=== PATIENT | female | born 1975 | race Caucasian/White ===

== ENCOUNTER 2017-03-09 23:13 | Emergency (ER) | payer MEDICAID ==
[2017-03-09 23:13] VITALS: BMI 29.1
[2017-03-09 23:20] VITALS: BP 121/72; RESP 20; TEMP 99.1
[2017-03-09] MEDS ORDERED: Promethazine/Cod 6.25mg-10mg/5ml Syr UD PO STA (23:30)
[2017-03-09] MEDS: Albuterol-Ipratrop 3 mg / 0.5 (3 ml) UD IH SCH ×2 (23:30→23:44)
[2017-03-09] MEDS ORDERED: Promethazine/Cod 6.25mg-10mg/5ml Syr UD ONE (23:35)
[2017-03-09] MEDS ORDERED: Albuterol-Ipratrop 3 mg / 0.5 (3 ml) UD ONE ×2 (23:36)
--- NOTE | 2017-03-10 00:42 | C.PDOC ---
History Of Present Illness 41 year old patient, with a history of bronchitis, presents to the ED complaining of a productive cough and chest congestion for the past 4 days. Patient took DayQuil and NyQuil with no relief. Patient is unable to sleep due to her symptoms. Patient became short of breath just prior to arrival which prompted the visit. Patient denies fever, chills, nausea, or vomiting. Time Seen by Provider: 03/09/17 23:20 Chief Complaint (Nursing): Cough, Cold, Congestion History Per: Patient History/Exam Limitations: no limitations Onset/Duration Of Symptoms: Days (4) Current Symptoms Are (Timing): Still Present Location Of Pain: Other Sick Contacts (Context): None Associated Symptoms: Cough, Other (chest congestion) Ear Symptoms: Bilateral: None Severity: Mild Pain Scale Rating Of: 3 Recent travel outside of the [place]: No Past Medical History Reviewed: Historical Data, Nursing Documentation, Vital Signs Vital Signs: Last Vital Signs Temp 99.1 F 03/09/17 23:17 Pulse 74 03/10/17 00:53 Resp 20 03/10/17 00:53 BP 121/72 03/09/17 23:17 Pulse Ox 97 03/10/17 00:53 - Medical History PMH: Anxiety, Bipolar Disorder, Bronchitis, Depression, Gastritis, Post Traumatic Stress Disorder - [facility] Procedures INJECT/INFUSE NEC (06/16/07) PSYCHIAT DRUG THERAP NEC (12/28/14) Family History: States: Unknown Family Hx - Social History Hx Tobacco Use: Yes Hx Alcohol Use: No Hx Substance Use: No (methadone) - Immunization History Hx Tetanus Toxoid Vaccination: No Hx Influenza Vaccination: No Hx Pneumococcal Vaccination: No Review Of Systems Except As Marked, All Systems Reviewed And Found Negative. Constitutional: Negative for: Fever, Chills Respiratory: Positive for: Cough (productive), Shortness of Breath, Other ( chest congestion) Gastrointestinal: Negative for: Nausea, Vomiting Physical Exam - Physical Exam Appears: Non-toxic, No Acute Distress Skin: Warm, Dry Head: Atraumatic, Normacephalic Eye(s): bilateral: PERRL, EOMI Ear(s): Bilateral: Normal Nose: Normal Oral Mucosa: Moist Throat: Normal, No Erythema, No Exudate Neck: Normal ROM, Supple Cardiovascular: Rhythm Regular Respiratory: Decreased Breath Sounds, No Accessory Muscle Use, No Rales, Rhonchi (scattered), Wheezing (scattered expiratory) Neurological/Psych: Oriented x3 ED Course And Treatment O2 Sat by Pulse Oximetry: 98 (RA) Pulse Ox Interpretation: Normal - Radiology CXR: Interpreted by Me, Viewed By Me CXR Interpretation: Yes: Other (increased PBT, questionable perihiler infiltrate ) Progress Note: Plan: -Chest x-ray. -Benadry, Duoneb x2, Phenergan/Codeine Syrup, Prednisone. -Reassess and disposition. Upon reassessment, patient is resting comfortably with no wheezing, chest pain, or retractions. Oxygen saturation has improved. Patient is alert and oriented x 3. Patient was advised to follow up with physician in 1-2 days. Return if symptoms worsen. Disposition Counseled Patient/Family Regarding: Diagnosis, Need For Followup - Disposition Referrals: [facility] [Outside] [facility] [Outside] Disposition: HOME/ ROUTINE Disposition Time: 00:42 Condition: GOOD Additional Instructions: Increase PO fluids Take medications as directed Follow up in clinic Return to ER if worse Prescriptions: Promethazine/Codeine [Codeine/Promethazine 10 MG/5 Ml-6.25 MG/5 Ml] 5 ml PO TID #120 ml Azithromycin [Zithromax] 250 mg PO DAILY #6 tab Cetirizine HCl [Zyrtec] 10 mg PO DAILY #20 capsule predniSONE [Prednisone] 40 mg PO DAILY #10 tab Instructions: Acute Bronchitis (ED) - Clinical Impression Clinical Impression: Bronchitis - PA / INDUSTRIAL RELATIONS COUNSELOR / Resident Statement MD/DO has reviewed & agrees with the documentation as recorded. - Scribe Statement The provider has reviewed the documentation as recorded by the Scribe Inna Dobbs All medical record entries made by the Scribe were at my direction and personally dictated by me. I have reviewed the chart and agree that the record accurately reflects my personal performance of the history, physical exam, medical decision making, and the department course for this patient. I have also personally directed, reviewed, and agree with the discharge instructions and disposition.
[2017-03-10 00:54] VITALS: PULSE 74
[2017-03-10 02:31] VITALS: O2SAT 98
--- NOTE | 2017-03-10 10:16 | RAD ---
HISTORY: COUGH COMPARISON: Chest x-ray performed 12/29/26 TECHNIQUE: Chest PA and lateral FINDINGS: LUNGS: Interval development of medial right lower lobe pneumonia. Please note that chest x-ray has limited sensitivity for the detection of pulmonary masses. PLEURA: No significant pleural effusion identified. No definite pneumothorax . CARDIOVASCULAR: The cardiomediastinal silhouette appears within normal limits of size. OSSEOUS STRUCTURES: Mild kyphosis. Degenerative changes. VISUALIZED UPPER ABDOMEN: Unremarkable. OTHER FINDINGS: None. IMPRESSION: Medial right lower lobe pneumonia.
== END 2017-03-10 00:53 | disposition home or self-care (01) ==
LOC: C.ER 23:13
DX: J40 Bronchitis, not specified as acute or chronic (principal); Z72.0 Tobacco use

== ENCOUNTER 2017-07-06 23:28 | Inpatient (IN) | payer MEDICAID ==
[2017-07-06 23:28] VITALS: BMI 29.1
[2017-07-07 01:41] LABS: BASO % 0.4 % (0.0-2.0); EOS # 0.2 K/uL (0.0-0.7); EOS % 2.2 % (0.0-4.0); HEMATOCRIT 36.1 % (34.0-47.0); LYMPH # 2.3 K/uL (1.0-4.3); LYMPH % 28.7 % (20.0-40.0); MEAN CELL VOLUME 83.1 fL (81.0-99.0); MEAN CORPUSCULAR HEMOGLOBIN 27.1 pg (27.0-31.0); MEAN CORPUSCULAR HGB CONC 32.6 g/dL (33.0-37.0); MEAN PLATELET VOLUME 8.4 fL (7.2-11.7); MONO # 0.6 K/uL (0.0-0.8); RED CELL DISTRIBUTION WIDTH 14.5 % (11.5-14.5); WHITE BLOOD COUNT 8.1 K/uL (4.8-10.8)
[2017-07-07 01:49] LABS: RBC URINE 5 /hpf (0-3); URINE BACTERIA RARE (<OCC); URINE BILIRUBIN NEGATIVE (NEGATIVE); URINE BLOOD 2+ (NEGATIVE); URINE COLOR Yellow (YELLOW); URINE GLUCOSE (UA) NORMAL (Normal); URINE KETONE TRACE mg/dL (NEGATIVE); URINE LEUKOCYTE ESTERASE TRACE Leu/uL (Negative); URINE PROTEIN NEGATIVE (NEGATIVE); WBC URINE 6 /hpf (0-5)
[2017-07-07 01:59] LABS: CHLORIDE 98 mmol/L (98-107); POTASSIUM 4.3 mmol/L (3.6-5.2); SODIUM 140 mmol/L (132-148)
[2017-07-07 02:01] LABS: GFR AFRICAN-AMERICAN > 60
[2017-07-07 02:02] LABS: ALB/GLOB RATIO 1.1 (1.0-2.1); ALKALINE PHOSPHATASE 79 U/L (38-126); ALT/SGPT 29 U/L (9-52); AST/SGOT 22 U/L (14-36); BILIRUBIN,TOTAL 0.4 mg/dL (0.2-1.3); BLOOD UREA NITROGEN 7 mg/dL (7-17); CALCIUM 9.2 mg/dl (8.6-10.4); CARBON DIOXIDE 29 mmol/L (22-30); GLUCOSE,RANDOM 80 mg/dL (65-105)
[2017-07-07 02:03] LABS: ALCOHOL SERUM < 10 mg/dl (0-10)
--- NOTE | 2017-07-07 02:20 | C.PDOC ---
History Of Present Illness 42 year old female who presents to the ER with a complaint of feeling depressed and suicidal for the past few days. Patient was seen 3 months ago for the same complaint; denies physical complaints at this time. Chief Complaint (Nursing): Psychiatric Evaluation History Per: Patient History/Exam Limitations: no limitations Onset/Duration Of Symptoms: Days Current Symptoms Are (Timing): Still Present Suicide/Self Injury Attempted (Context): None Modifying Factor(s): None Associated Symptoms: Depression, Suicidal Thoughts. denies: Suicidal Plan Involuntary Hold By: None Recent travel outside of the [place]: No Past Medical History Reviewed: Historical Data, Nursing Documentation, Vital Signs Vital Signs: Last Vital Signs Temp 98.8 F 07/07/17 00:39 Pulse 75 07/07/17 02:30 Resp 18 07/07/17 02:30 BP 124/79 07/07/17 02:30 Pulse Ox 98 07/07/17 02:30 - Medical History PMH: Anxiety, Bipolar Disorder, Bronchitis, Depression, Gastritis, Post Traumatic Stress Disorder Surgical History: No Surg Hx - [facility] Procedures INJECT/INFUSE NEC (06/16/07) PSYCHIAT DRUG THERAP NEC (12/28/14) Family History: States: Unknown Family Hx - Social History Hx Tobacco Use: Yes Hx Alcohol Use: No Hx Substance Use: Yes (methadone) - Immunization History Hx Tetanus Toxoid Vaccination: No Hx Influenza Vaccination: No Hx Pneumococcal Vaccination: No Review Of Systems Constitutional: Negative for: Fever, Chills Gastrointestinal: Negative for: Nausea, Vomiting, Diarrhea Psych: Positive for: Depression, Suicidal ideation Physical Exam - Physical Exam Appears: Non-toxic, No Acute Distress Skin: Normal Color, Warm, Dry Head: Atraumatic, Normacephalic Oral Mucosa: Moist Neck: Normal, Supple Chest: Symmetrical, No Tenderness Cardiovascular: Rhythm Regular, No Murmur Respiratory: Normal Breath Sounds, No Rales, No Rhonchi, No Wheezing Gastrointestinal/Abdominal: Soft, No Tenderness Neurological/Psych: Oriented x3, Normal Speech, Normal Cognition ED Course And Treatment - Laboratory Results Result Diagrams: 07/07/17 01:31 07/07/17 01:31 O2 Sat by Pulse Oximetry: 98 (Room air) Pulse Ox Interpretation: Normal Progress Note: Crisis notified. Disposition Discussed With : Marta Valdivia Doctor Will See Patient In The: Hospital Counseled Patient/Family Regarding: Diagnosis - Disposition Referrals: Non [facility] Provider, [Primary Care Provider] - Disposition: HOSPITALIZED Disposition Time: 05:55 Condition: STABLE Forms: [facility] ([place]) - POA Present On Arrival: None - Clinical Impression Clinical Impression: Major depressive disorder, Cocaine use disorder, moderate, dependence - Scribe Statement The provider has reviewed the documentation as recorded by the Scribivan Perkins All medical record entries made by the Yrnibe were at my direction and personally dictated by me. I have reviewed the chart and agree that the record accurately reflects my personal performance of the history, physical exam, medical decision making, and the department course for this patient. I have also personally directed, reviewed, and agree with the discharge instructions and disposition.
[2017-07-07] MEDS ORDERED: guaiFENesin DM 200 mg-20 mg/10 ml UD PO STA (02:26)
[2017-07-07] MEDS ORDERED: guaiFENesin DM 200 mg-20 mg/10 ml UD ONE (02:27)
--- NOTE | 2017-07-07 06:37 | PCM.BM ---
<Miguel Porter - Last Filed: 07/07/17 06:35> Treatment Plan Problems - Problems identified on initial assessmt Major Depression Date Initiated: 07/07/17 Time Initiated: 06:36 Assessment reference: NA Status: Active Suicidal Ideation Date Initiated: 07/07/17 Time Initiated: 06:37 Assessment reference: NA Status: Active Substance Abuse Date Initiated: 07/07/17 Time Initiated: 06:37 Assessment reference: NA Status: Active Treatment assets and liabiliti Patient Assests: cooperative, self-reliant, ADL independent, negotiates basic needs Patient Liabilities: live alone, financial problems, poor support system, substance abuse, legal issue - Milieu Protocol Maintain good personal hygiene: daily Encourage regular showers, daily Remind patient to perform daily oral care, daily Assist patient to perform ADL's Maintain personal safety: every shift Educate patient to report safety concerns to staff, every shift Monitor environment for contraband/sharps Medication safety: Monitor for expected outcome, potential side effects: every shift, Assess barriers to learning: every shift, Assess readiness for medication education: every shift <Marta Valdivia - Last Filed: 07/07/17 11:57> - Diagnosis (1) Major depressive disorder Status: Acute Interventions: 07/07/17 11:57 * Assess/adjust medications daily and /or as needed * See patient on an individual basis 7x/week to assess symptoms of depression * Monitor for side effects & effectiveness of medications * (2) Cocaine use disorder, moderate, dependence Status: Acute Interventions: 07/07/17 11:57 * Assess 7x/week regarding severity of withdrawal * Educate regarding risks, benefits, side effects and alternatives of medications * Use Motivational Interviewing for abstinence * Use CBT for relapse prevention * Medication management for withdrawal symptoms * Encourage medication assisted treatment * <Jailene Echavarria - Last Filed: 07/08/17 11:24> Family Contact Family involvement: Family/SO is involved Family contact: Patient agrees to contact Family contact name: Aunt Family contacted how many times per week?: 1 - Goals for Treatment Patient goals for treatment: "I want to go to rehab." Discharge/Continuing Care - Education Needs Education Needs: Patient Medication, Patient Coping Skills, Patient Placement options, Patient Community resources - Discharge Discharge Criteria: Tolerates medication w/o severe side effects, No longer exhibiting s/s of withdrawal, Reduction of target symptoms Discharge to:: Substance Abuse Rehab - Treatment Team Participation Discussed with Family/SO: Yes Was Patient/Family/SO present at Treatment Team Meeting: Yes <Bret Willard - Last Filed: 07/14/17 19:15> - Diagnosis (1) Major depressive disorder, recurrent severe without psychotic features Status: Acute Interventions: 07/14/17 19:13 Wellbutrin More treating (2) Long-term current use of methadone for opiate dependence Status: Acute Interventions: 07/14/17 19:14 Methadone (3) Cocaine use disorder, severe, dependence Status: Acute Interventions: 07/14/17 19:14 Psychotherapy (4) SHARA (generalized anxiety disorder) Status: Acute Interventions: 07/14/17 19:14 Wellbutrin Lamotrigine
[2017-07-07] MEDS: Methadone 40 mg Tab PO SCH (09:46)
[2017-07-07] MEDS: guaiFENesin 100 mg/5 ml Syrup UD PO PRN ×2 (11:33→16:18)
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
[2017-07-07] MEDS ORDERED: Promethazine DM 6.25 mg-15 mg/5 ml Syrup PO ONE (19:19)
[2017-07-08] MEDS: Methadone 40 mg Tab PO SCH (09:09)
--- NOTE | 2017-07-08 14:05 | PCM.PYCHPN ---
Psychiatric Progress Note - Psychiatric Progress Note Patient seen today, length of contact: 15 min Patient Chief Complaint: "I am feeling depressed" Problems Identified/Issues Discussed: The pt is seen, chart reviewed, case discussed with staff. Pt says she was able to sleep last night. Pt took her medications but says she feels "the same as yesterday." Pt says she feels better after seeing other patients on the floor and the way they cope with their psychiatric problems. Pt denies SI, AVH currently. Pt says she has "a lot of back pain in her mid to lower back." Pt denies any abdominal pain, nausea, vomiting, or diarrhea. The pt is compliant with medications and reports no side-effects. Symptoms are improving but needs more time to stabilize. After care discussed, support and psychoeducation given. Medication Change: Yes Medical Record Reviewed: Yes Mental Status Examination - Cognitive Function Orientation: Person, Place, Situation, Time Memory: Intact Attention: WNL Concentration: Poor Association: WNL Fund of Knowledge: Poor - Mood Mood: Depressed, Anxious - Affect Affect: Constricted - Speech Speech: Soft - Formal Thought Process Formal Thought Process: No Impairment - Suicidal Ideation Suicidal Ideation: No - Homicidal Ideation Homicidal Ideation: No Goal/Treatment Plan - Goal/Treatment Plan Need for Continued Stay: Severe depression anxiety, Severe functional impairment Progress Toward Problem(s) and Goals/Treatment Plan: Continue medications Support and psychoeducation daily Attend groups and activities daily After care planning by - Smoking Cessation Smoking Cessation Initiated: No
[2017-07-08] MEDS: guaiFENesin 100 mg/5 ml Syrup UD PO PRN (15:46)
[2017-07-08] MEDS: Clotrimazole 1% Cream 15 GM TUBE TOP SCH (17:57)
[2017-07-08] MEDS ORDERED: Albuterol-Ipratrop 3 mg / 0.5 (3 ml) UD INH PRN (21:20)
--- NOTE | 2017-07-08 21:32 | CP.PCM.PN ---
Subjective - Date & Time of Evaluation Date of Evaluation: 07/08/17 Time of Evaluation: 21:29 - Subjective Subjective: Patient seen and examined. Patient is a 42 year old female with complaint of cough for one week. Patient is a current 1/2 ppd smoker and uses albuterol inhalers occasionally. Patient states she has tried Robitussin which does not provide relief. Patient also complains of occasional mucous expectoration. Patient denies fevers and chills. Objective - Vital Signs/Intake and Output Vital Signs (last 24 hours): Temp Pulse Resp BP Pulse Ox 98.2 F 61 19 116/75 95 07/08/17 07:41 07/08/17 15:44 07/08/17 07:41 07/08/17 15:44 07/07/17 06:13 - Medications Medications: Current Medications Albuterol/Ipratropium (Duoneb 3 Mg/0.5 Mg (3 Ml) Ud) 3 ml INH RQ4 PRN PRN Reason: Shortness of Breath Bupropion HCl (Wellbutrin) 100 mg PO DAILY [facility] Last Admin: 07/08/17 09:09 Dose: 100 mg Chlordiazepoxide (Librium) 25 mg PO Q12H [facility] PRN Reason: Taper Stop: 07/10/17 11:59 Last Admin: 07/08/17 11:33 Dose: 25 mg Clotrimazole (Lotrimin 1%) 0 gm TOP BID [facility] Last Admin: 07/08/17 17:57 Dose: 1 applic Gabapentin (Neurontin) 300 mg PO BID [facility] Last Admin: 07/08/17 17:57 Dose: 300 mg Guaifenesin (Robitussin) 100 mg PO Q4H PRN PRN Reason: Cough Last Admin: 07/08/17 15:46 Dose: 100 mg Hydroxyzine HCl (Atarax) 50 mg PO Q6H PRN PRN Reason: Anxiety Last Admin: 07/08/17 15:46 Dose: 50 mg Ibuprofen (Motrin Tab) 600 mg PO Q6H PRN PRN Reason: Pain, moderate (4-7) Lamotrigine (Lamictal) 25 mg PO DAILY [facility] Last Admin: 07/08/17 09:09 Dose: 25 mg Methadone HCl (Methadone) 10 mg PO DAILY [facility] Last Admin: 07/08/17 09:10 Dose: 10 mg Methadone HCl (Methadose) 120 mg PO DAILY [facility] Last Admin: 07/08/17 09:09 Dose: 120 mg Nicotine (Nicoderm Cq) 1 patch TD DAILY [facility] Last Admin: 07/08/17 09:09 Dose: 1 patch Pneumococcal Polyvalent Vaccine (Pneumovax 23 Vaccine) 0.5 ml IM .ONCE ONE Stop: 07/10/17 10:01 Promethazine HCl/Dextromethorphan (Phenergan Dm Syrup) 5 ml PO Q6H PRN PRN Reason: Cough Trazodone HCl (Desyrel) 100 mg PO HS PRN PRN Reason: Insomnia Last Admin: 07/08/17 21:07 Dose: 100 mg - Constitutional Appears: Non-toxic, No Acute Distress - Head Exam Head Exam: ATRAUMATIC, NORMOCEPHALIC - Eye Exam Eye Exam: EOMI - ENT Exam ENT Exam: Mucous Membranes Moist - Respiratory Exam Respiratory Exam: Clear to Ausculation Bilateral, NORMAL BREATHING PATTERN. absent: Rales, Rhonchi, Wheezes - Cardiovascular Exam Cardiovascular Exam: +S1, +S2 - GI/Abdominal Exam GI & Abdominal Exam: Soft, Normal Bowel Sounds. absent: Tenderness - Extremities Exam Extremities Exam: Normal Inspection - Neurological Exam Neurological Exam: Alert, Awake - Skin Skin Exam: Dry, Warm Assessment and Plan - Assessment and Plan (Free Text) Assessment: Cough Will try promethazine DM for cough with duonebs as needed patient had labs yesterday which did not show a leukocytosis will repeat basic labs tomorrow morning If patient worsens or develops fever or white count, please place formal consult for medical team Plan D/W Dr. Shah
[2017-07-08] MEDS: Promethazine DM 6.25 mg-15 mg/5 ml Syrup PO PRN (22:05)
[2017-07-09] MEDS: guaiFENesin 100 mg/5 ml Syrup UD PO PRN (01:22)
[2017-07-09 08:27] LABS: BASO % 0.6 % (0.0-2.0); EOS # 0.2 K/uL (0.0-0.7); EOS % 2.6 % (0.0-4.0); HEMATOCRIT 39.1 % (34.0-47.0); LYMPH # 2.5 K/uL (1.0-4.3); LYMPH % 37.8 % (20.0-40.0); MEAN CELL VOLUME 83.3 fL (81.0-99.0); MEAN CORPUSCULAR HEMOGLOBIN 27.1 pg (27.0-31.0); MEAN CORPUSCULAR HGB CONC 32.6 g/dL (33.0-37.0); MONO # 0.5 K/uL (0.0-0.8); MONO % 7.4 % (0.0-10.0); NRBC % 0.1 % (0.0-2.0); RED CELL DISTRIBUTION WIDTH 14.2 % (11.5-14.5); WHITE BLOOD COUNT 6.6 K/uL (4.8-10.8)
[2017-07-09 08:39] LABS: CHLORIDE 101 mmol/L (98-107)
[2017-07-09 08:40] LABS: POTASSIUM 4.3 mmol/L (3.6-5.2); SODIUM 142 mmol/L (132-148)
[2017-07-09 08:42] LABS: ALKALINE PHOSPHATASE 72 U/L (38-126); ALT/SGPT 24 U/L (9-52); AST/SGOT 19 U/L (14-36); BILIRUBIN,TOTAL 0.3 mg/dL (0.2-1.3); BLOOD UREA NITROGEN 7 mg/dL (7-17); CARBON DIOXIDE 31 mmol/L (22-30); GFR AFRICAN-AMERICAN > 60; GLUCOSE,RANDOM 91 mg/dL (65-105); TOTAL PROTEIN 6.3 g/dL (6.3-8.3)
[2017-07-09 08:43] LABS: CALCIUM 9.5 mg/dl (8.6-10.4)
[2017-07-09] MEDS: Clotrimazole 1% Cream 15 GM TUBE TOP SCH ×2 (09:03→17:30)
[2017-07-09] MEDS: Methadone 40 mg Tab PO SCH (09:04)
--- NOTE | 2017-07-09 12:50 | PCM.PYCHPN ---
Psychiatric Progress Note - Psychiatric Progress Note Patient seen today, length of contact: 15 min Patient Chief Complaint: "I don't feel well" Problems Identified/Issues Discussed: Patient seen, chart reviewed, case discussed with staff. Pt reports not feeling well due to her cough and says the cough medication is not working. Pt reports no problems with appetite but says her sleep "is not great." Pt denies SI. The pt is compliant with medications and reports no side-effects. Symptoms are improving but needs more time to stabilize. After care discussed, support and psychoeducation given. Medical Problems: None reported Diagnostic Results: Reviewed DSM 5 Symptoms Update: Improvement with treatment Medication Change: No Medical Record Reviewed: Yes Consults ordered or reviewed: Reviewed Mental Status Examination - Cognitive Function Orientation: Person, Place, Situation, Time Memory: Intact Attention: WNL Concentration: WNL Association: WNL Fund of Knowledge: [facility] Decription of patient's judgement and insights: Fair - Mood Mood: Depressed - Affect Affect: Depressed - Speech Speech: Appropriate - Formal Thought Process Formal Thought Process: No Impairment - Suicidal Ideation Suicidal Ideation: No - Homicidal Ideation Homicidal Ideation: No Goal/Treatment Plan - Goal/Treatment Plan Need for Continued Stay: Remain at risks for inpatient hospitalization, Discharge may exacerbated symptoms, Severe functional impairment Progress Toward Problem(s) and Goals/Treatment Plan: Continue medications Support and psychoeducation daily Attend groups and activities daily After care planning by TWYLA Estimated Date of D/C: 07/13/17 - Smoking Cessation Smoking Cessation Initiated: Yes
[2017-07-09] MEDS: Promethazine DM 6.25 mg-15 mg/5 ml Syrup PO PRN ×2 (15:01→22:36)
--- NOTE | 2017-07-09 15:17 | RAD ---
HISTORY: cough with intermittent sputum production COMPARISON: Chest x-ray performed 03/09/17 TECHNIQUE: Chest, one view. FINDINGS: LUNGS: Right hilar prominence. No focal consolidation. Please note that chest x-ray has limited sensitivity for the detection of pulmonary masses. PLEURA: No significant pleural effusion identified. No definite pneumothorax . CARDIOVASCULAR: Heart size appears within normal limits. OSSEOUS STRUCTURES: Degenerative changes. VISUALIZED UPPER ABDOMEN: Mild elevation of the right hemidiaphragm. OTHER FINDINGS: None. IMPRESSION: Right hilar prominence.
[2017-07-10 02:07] LABS: RBC URINE 1 /hpf (0-3); URINE BACTERIA RARE (<OCC); URINE BILIRUBIN NEGATIVE (NEGATIVE); URINE COLOR Yellow (YELLOW); URINE GLUCOSE (UA) NORMAL (Normal); URINE KETONE NEGATIVE (NEGATIVE); URINE PROTEIN NEGATIVE (NEGATIVE); URINE UROBILINOGEN NORMAL mg/dL (0.2-1.0); WBC URINE 10 /hpf (0-5)
[2017-07-10 02:11] LABS: URINE BLOOD TRACE (NEGATIVE); URINE LEUKOCYTE ESTERASE 1+ Leu/uL (Negative)
[2017-07-10] MEDS: Methadone 40 mg Tab PO SCH (09:00)
[2017-07-10] MEDS: Clotrimazole 1% Cream 15 GM TUBE TOP SCH ×2 (09:04→17:25)
[2017-07-10] MEDS ORDERED: Pneumococcal 23-Valent Vaccine IM ONE (10:00)
--- NOTE | 2017-07-10 16:16 | PCM.PYCHPN ---
Psychiatric Progress Note - Psychiatric Progress Note Patient seen today, length of contact: 15 min Patient Chief Complaint: I feel little better. Problems Identified/Issues Discussed: Patient seen, chart reviewed, case discussed with staff. Pt reports feeling little better than before. Pt reports no problems with appetite but says her sleep "is not great." Pt denies SI. The pt is compliant with medications and reports no side-effects. Symptoms are improving but needs more time to stabilize. After care discussed, support and psychoeducation given. Medical Problems: None reported Diagnostic Results: Reviewed Medication Change: No Medical Record Reviewed: Yes Consults ordered or reviewed: Reviewed Mental Status Examination - Cognitive Function Orientation: Person, Place, Situation, Time Memory: Intact Attention: WNL Concentration: WNL Association: [facility] Fund of Knowledge: [facility] Decription of patient's judgement and insights: Fair - Mood Mood: Depressed (Less than before) - Affect Affect: Other (Appropriate) - Speech Speech: Appropriate - Formal Thought Process Formal Thought Process: No Impairment Psychotic Thoughts and Behaviors: None - Suicidal Ideation Suicidal Ideation: No - Homicidal Ideation Homicidal Ideation: No Goal/Treatment Plan - Goal/Treatment Plan Need for Continued Stay: Remain at risks for inpatient hospitalization, Discharge may exacerbated symptoms, Severe functional impairment Progress Toward Problem(s) and Goals/Treatment Plan: Continue medications Support and psychoeducation daily Attend groups and activities daily After care planning by TWYLA Estimated Date of D/C: 07/13/17 - Smoking Cessation Smoking Cessation Initiated: Yes
[2017-07-10] MEDS: Promethazine DM 6.25 mg-15 mg/5 ml Syrup PO PRN (20:58)
[2017-07-11] MEDS: Methadone 40 mg Tab PO SCH (09:52)
[2017-07-11] MEDS: guaiFENesin 100 mg/5 ml Syrup UD PO PRN (09:55)
[2017-07-11] MEDS: Clotrimazole 1% Cream 15 GM TUBE TOP SCH ×3 (09:56→18:27)
--- NOTE | 2017-07-11 17:16 | PCM.PYCHPN ---
Psychiatric Progress Note - Psychiatric Progress Note Patient seen today, length of contact: 15 min Patient Chief Complaint: I still feel depressed but mostly sleep was better. Problems Identified/Issues Discussed: Patient seen, chart reviewed, case discussed with staff. Patient reported still feels depressed but now has better sleep . The pt is compliant with medications and reports no side-effects. Will increase the dose of Wellbutrin to 150 mg from 100 mg. Patient agreed. Her cough is better Symptoms are improving but needs more time to stabilize. After care discussed, support and psychoeducation given. Medical Problems: None reported Diagnostic Results: Reviewed DSM 5 Symptoms Update: Improving with treatment Medication Change: No Medical Record Reviewed: Yes Consults ordered or reviewed: Reviewed Mental Status Examination - Cognitive Function Orientation: Person, Place, Situation, Time Memory: Intact Attention: WNL Concentration: WNL Association: [facility] Fund of Knowledge: [facility] Decription of patient's judgement and insights: Fair - Mood Mood: Depressed (Less than before) - Affect Affect: Other (Appropriate) - Speech Speech: Appropriate - Formal Thought Process Formal Thought Process: No Impairment Psychotic Thoughts and Behaviors: None - Suicidal Ideation Suicidal Ideation: No - Homicidal Ideation Homicidal Ideation: No Goal/Treatment Plan - Goal/Treatment Plan Need for Continued Stay: Remain at risks for inpatient hospitalization, Discharge may exacerbated symptoms, Severe functional impairment Progress Toward Problem(s) and Goals/Treatment Plan: Continue medications Support and psychoeducation daily Attend groups and activities daily After care planning by TWYLA Estimated Date of D/C: 07/13/17 - Smoking Cessation Smoking Cessation Initiated: Yes
[2017-07-11] MEDS: Promethazine DM 6.25 mg-15 mg/5 ml Syrup PO PRN (21:46)
[2017-07-12] MEDS ORDERED: Methadone 40 mg Tab PO ONE (10:30)
[2017-07-12] MEDS: Clotrimazole 1% Cream 15 GM TUBE TOP SCH ×2 (13:47→21:28)
--- NOTE | 2017-07-12 16:38 | PCM.PYCHPN ---
Psychiatric Progress Note - Psychiatric Progress Note Patient seen today, length of contact: 15 min Patient Chief Complaint: I still feel down but mostly sleep was better. Problems Identified/Issues Discussed: Patient seen, chart reviewed, case discussed with staff. Patient reported still feels down but now has better sleep. Education provided about the medications. Patient is on 130 mg of methadone. It appears that patient becomes tired after taking medication and feels she is not better. Offered to adjust medication, patient refused. The pt is compliant with medications and reports no side-effects. Her cough is better Symptoms are improving but needs more time to stabilize. After care discussed, support and psychoeducation given. Medical Problems: None reported Diagnostic Results: Reviewed Medication Change: No Medical Record Reviewed: Yes Consults ordered or reviewed: Reviewed Mental Status Examination - Cognitive Function Orientation: Person, Place, Situation, Time Memory: Intact Attention: WNL Concentration: WNL Association: [facility]N Fund of Knowledge: [facility] Decription of patient's judgement and insights: Fair - Mood Mood: Depressed (Less than before) - Affect Affect: Other (Appropriate) - Speech Speech: Appropriate - Formal Thought Process Formal Thought Process: No Impairment Psychotic Thoughts and Behaviors: None - Suicidal Ideation Suicidal Ideation: No - Homicidal Ideation Homicidal Ideation: No Goal/Treatment Plan - Goal/Treatment Plan Need for Continued Stay: Remain at risks for inpatient hospitalization, Discharge may exacerbated symptoms, Severe functional impairment Progress Toward Problem(s) and Goals/Treatment Plan: Continue medications Support and psychoeducation daily Attend groups and activities daily After care planning by TWYLA Estimated Date of D/C: 07/13/17 - Smoking Cessation Smoking Cessation Initiated: Yes
[2017-07-12] MEDS: Promethazine DM 6.25 mg-15 mg/5 ml Syrup PO PRN (21:29)
[2017-07-13 07:41] VITALS: O2SAT 99
[2017-07-13] MEDS: Clotrimazole 1% Cream 15 GM TUBE TOP SCH ×2 (10:09→21:54)
--- NOTE | 2017-07-13 16:46 | PCM.PYCHPN ---
Psychiatric Progress Note - Psychiatric Progress Note Patient seen today, length of contact: 15 min Patient Chief Complaint: I'm feeling little better Problems Identified/Issues Discussed: Patient seen, chart reviewed, case discussed with staff. Patient reported still feels down but now has better sleep. Education provided about the medications. Patient is on 130 mg of methadone. It appears that patient becomes tired after taking medication and feels she is not better. Again offered to adjust medication, patient refused. The pt is compliant with medications and reports no side-effects. Her cough is better Symptoms are improving but needs more time to stabilize. After care discussed, support and psychoeducation given. Patient wants to go to a place in [place] called [facility], for follow-up care after discharge from the hospital Medical Problems: None reported Diagnostic Results: Reviewed DSM 5 Symptoms Update: Improving with treatment Medication Change: No Medical Record Reviewed: Yes Consults ordered or reviewed: Reviewed Mental Status Examination - Cognitive Function Orientation: Person, Place, Situation, Time Memory: Intact Attention: WNL Concentration: WNL Association: WN Fund of Knowledge: [facility] Decription of patient's judgement and insights: Fair - Mood Mood: Depressed (Less than before) - Affect Affect: Other (Appropriate) - Speech Speech: Appropriate - Formal Thought Process Formal Thought Process: No Impairment Psychotic Thoughts and Behaviors: None - Suicidal Ideation Suicidal Ideation: No - Homicidal Ideation Homicidal Ideation: No Goal/Treatment Plan - Goal/Treatment Plan Need for Continued Stay: Remain at risks for inpatient hospitalization, Discharge may exacerbated symptoms, Severe functional impairment Progress Toward Problem(s) and Goals/Treatment Plan: Continue medications Support and psychoeducation daily Attend groups and activities daily After care planning by TWYLA Estimated Date of D/C: 07/15/17 - Smoking Cessation Smoking Cessation Initiated: Yes
[2017-07-13] MEDS ORDERED: Methadone 40 mg Tab PO ONE (16:50)
[2017-07-13] MEDS: Promethazine DM 6.25 mg-15 mg/5 ml Syrup PO PRN (22:03)
[2017-07-14] MEDS ORDERED: Methadone 40 mg Tab PO ONE ×3 (10:30→17:45)
--- NOTE | 2017-07-14 19:17 | PCM.PYCHPN ---
Psychiatric Progress Note - Psychiatric Progress Note Patient seen today, length of contact: 15 min Patient Chief Complaint: I'm feeling little better Problems Identified/Issues Discussed: Patient seen, chart reviewed, case discussed with staff. Patient reported still feels down but now has better sleep. Education provided about the medications. Patient is on 130 mg of methadone. It appears that patient becomes tired after taking medication and feels she is not better. Again offered to adjust medication, patient refused. The pt is compliant with medications and reports no side-effects. Her cough is better Symptoms are improving but needs more time to stabilize. After care discussed, support and psychoeducation given. Patient wants to go to a place in [place] called [facility], for follow-up care after discharge from the hospital Medical Problems: None reported Diagnostic Results: Reviewed DSM 5 Symptoms Update: Improving with treatment Medication Change: No Medical Record Reviewed: Yes Consults ordered or reviewed: Reviewed Mental Status Examination - Cognitive Function Orientation: Person, Place, Situation, Time Memory: Intact Attention: WNL Concentration: WNL Association: WNL Fund of Knowledge: [facility] Decription of patient's judgement and insights: Fair - Mood Mood: Depressed (Less than before) - Affect Affect: Other (Appropriate) - Speech Speech: Appropriate - Formal Thought Process Formal Thought Process: No Impairment Psychotic Thoughts and Behaviors: None - Suicidal Ideation Suicidal Ideation: No - Homicidal Ideation Homicidal Ideation: No Goal/Treatment Plan - Goal/Treatment Plan Need for Continued Stay: Remain at risks for inpatient hospitalization, Discharge may exacerbated symptoms, Severe functional impairment Progress Toward Problem(s) and Goals/Treatment Plan: Continue medications Support and psychoeducation daily Attend groups and activities daily After care planning by TWYLA Wants to go to [facility] in [place] for follow-up care after discharge from the hospital Estimated Date of D/C: 07/15/17 - Smoking Cessation Smoking Cessation Initiated: Yes
[2017-07-14] MEDS: Promethazine DM 6.25 mg-15 mg/5 ml Syrup PO PRN (21:19)
[2017-07-15] MEDS: Clotrimazole 1% Cream 15 GM TUBE TOP SCH ×2 (07:39→10:01)
[2017-07-15] MEDS ORDERED: Methadone 40 mg Tab PO ONE (10:30)
[2017-07-15 11:21] VITALS: BP 129/86; PULSE 73; RESP 19; TEMP 98.2
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
== END 2017-07-15 13:50 | disposition home or self-care (01) | DRG 430 ==
LOC: SUPCPDRO 23:28 → C.ER 23:28 → C.5E 07-07 05:57
PROVIDERS: ADMIT Psychiatry & Neurology Psychiatry; ATTEND Psychiatry & Neurology Psychiatry
PROC: HZ81ZZZ Medication Management for Substance Abuse Treatment, Methadone Maintenance (ICD-10-PCS; principal; 2017-07-07)
DX: F33.2 Major depressive disorder, recurrent severe without psychotic features (principal); F11.20 Opioid dependence, uncomplicated; F14.20 Cocaine dependence, uncomplicated; F17.210 Nicotine dependence, cigarettes, uncomplicated; F43.10 Post-traumatic stress disorder, unspecified; F41.1 Generalized anxiety disorder; Z91.410 Personal history of adult physical and sexual abuse

== ENCOUNTER 2017-09-06 09:45 | Emergency (ER) | payer MEDICAID ==
[2017-09-06 09:46] VITALS: BMI 35.4
[2017-09-06 10:33] LABS: BASO % 0.5 % (0.0-2.0); EOS # 0.1 K/uL (0.0-0.7); EOS % 1.3 % (0.0-4.0); HEMATOCRIT 40.6 % (34.0-47.0); LYMPH # 1.2 K/uL (1.0-4.3); LYMPH % 17.9 % (20.0-40.0); MEAN CELL VOLUME 84.5 fL (81.0-99.0); MEAN CORPUSCULAR HEMOGLOBIN 27.7 pg (27.0-31.0); MEAN CORPUSCULAR HGB CONC 32.8 g/dL (33.0-37.0); MONO # 0.4 K/uL (0.0-0.8); MONO % 6.3 % (0.0-10.0); NRBC % 0.1 % (0.0-2.0); RED CELL DISTRIBUTION WIDTH 14.8 % (11.5-14.5); WHITE BLOOD COUNT 6.8 K/uL (4.8-10.8)
[2017-09-06 10:39] LABS: CHLORIDE 101 mmol/L (98-107); POTASSIUM 3.7 mmol/L (3.6-5.2); SODIUM 137 mmol/L (132-148)
[2017-09-06 10:41] LABS: ALB/GLOB RATIO 1.1 (1.0-2.1); ALKALINE PHOSPHATASE 74 U/L (38-126); AST/SGOT 77 U/L (14-36); BILIRUBIN,TOTAL 0.7 mg/dL (0.2-1.3); CARBON DIOXIDE 28 mmol/L (22-30); GFR AFRICAN-AMERICAN > 60; TOTAL PROTEIN 8.3 g/dL (6.3-8.3)
[2017-09-06 10:42] LABS: ALT/SGPT 51 U/L (9-52); BLOOD UREA NITROGEN 9 mg/dL (7-17); CALCIUM 9.4 mg/dl (8.6-10.4); GLUCOSE,RANDOM 102 mg/dL (65-105)
[2017-09-06 12:00] LABS: RBC URINE < 1 /hpf (0-3); URINE BACTERIA RARE (<OCC); URINE BILIRUBIN NEGATIVE (NEGATIVE); URINE BLOOD NEGATIVE (NEGATIVE); URINE COLOR Yellow (YELLOW); URINE GLUCOSE (UA) NORMAL (Normal); URINE KETONE 1+ mg/dL (NEGATIVE); URINE LEUKOCYTE ESTERASE 1+ Leu/uL (Negative); URINE PROTEIN NEGATIVE (NEGATIVE); WBC URINE 6 /hpf (0-5)
--- NOTE | 2017-09-06 12:11 | C.PDOC ---
History Of Present Illness 42-year-old female, PMHx includes Anxiety, Bipolar Disorder, Bronchitis, Depression (history of suicide attempts), Gastritis, and Post Traumatic Stress Disorder, presents to the emergency department with complaints of epigastric abdominal pain, that is associated with nausea and non-bloody/non-bilious vomiting for the past two hours. Pain is persistent in nature, and described as a burning sensation. States she has a Hx of gastritis, and this is what her flares feel like. States she is not able to tolerate Methadone by mouth. Denies chest pain, shortness of breath, fevers, diarrhea, dysuria, palpitations, or any other associated symptoms. No other complaints at this time. Time Seen by Provider: 09/06/17 09:57 Chief Complaint (Nursing): Abdominal Pain History Per: Patient History/Exam Limitations: no limitations Onset/Duration Of Symptoms: Days Severity: Moderate Location Of Pain/Discomfort: Epigastric Past Medical History Reviewed: Historical Data, Nursing Documentation, Vital Signs Vital Signs: Last Vital Signs Temp 98.2 F 09/06/17 12:40 Pulse 60 09/06/17 12:40 Resp 16 09/06/17 12:40 BP 158/95 H 09/06/17 12:40 Pulse Ox 100 09/06/17 12:40 - Medical History PMH: Anxiety, Bipolar Disorder, Bronchitis, Depression (history of suicide attempts), Gastritis, Post Traumatic Stress Disorder Surgical History: Tonsillectomy - [facility] Procedures INJECT/INFUSE NEC (06/16/07) MEDICATION MANAGEMENT (08/09/17) MEDS MGMT FOR SUBSTANCE ABUSE TREATMENT, METHADONE MAINT (07/07/17) PSYCHIAT DRUG THERAP NEC (12/28/14) Family History: States: No Known Family Hx - Social History Hx Tobacco Use: Yes Hx Alcohol Use: No Hx Substance Use: Yes - Immunization History Hx Tetanus Toxoid Vaccination: No Hx Influenza Vaccination: No Hx Pneumococcal Vaccination: No Review Of Systems Except As Marked, All Systems Reviewed And Found Negative. Constitutional: Negative for: Fever, Chills Respiratory: Negative for: Cough, Shortness of Breath Gastrointestinal: Positive for: Nausea, Vomiting, Abdominal Pain Genitourinary: Negative for: Dysuria, Frequency Musculoskeletal: Negative for: Back Pain Neurological: Negative for: Weakness, Headache, Dizziness Physical Exam - Physical Exam Appears: Non-toxic, No Acute Distress Skin: Warm, Dry, No Rash Head: Atraumatic, Normacephalic Eye(s): bilateral: Normal Inspection, PERRL, EOMI Nose: Normal Oral Mucosa: Moist Lips: Normal Appearing Neck: Normal ROM Cardiovascular: Rhythm Regular, No Murmur Respiratory: Normal Breath Sounds, No Accessory Muscle Use Gastrointestinal/Abdominal: Soft, Tenderness (epigastric), No Guarding, No Rebound, Other ((-)[place] point.) ED Course And Treatment - Laboratory Results Result Diagrams: 09/06/17 10:26 09/06/17 10:26 O2 Sat by Pulse Oximetry: 100 Progress Note: UA/U-Preg, and blood work ordered and reviewed. Patient treated with IV Zofran and Pepcid. Pt is also requesting 1 Ativan. Disposition Counseled Patient/Family Regarding: Studies Performed, Diagnosis, Need For Followup, Rx Given - Disposition Referrals: [facility] [Outside] Disposition: HOME/ ROUTINE Disposition Time: 12:30 Condition: STABLE Prescriptions: Ondansetron [Zofran Odt] 4 mg PO Q8 PRN #15 odt PRN Reason: Nausea/Vomiting Instructions: Gastritis (ED) Forms: [email or web address] (Hungarian) Print Language: ALBANIAN - Clinical Impression Clinical Impression: Gastritis, Nausea, Vomiting
[2017-09-06 14:47] VITALS: BP 133/79; PULSE 89; RESP 20; TEMP 97.8; O2SAT 98
== END 2017-09-06 15:14 | disposition home or self-care (01) ==
LOC: C.ER 09:45
DX: K29.70 Gastritis, unspecified, without bleeding (principal)
CPT/HCPCS: 80053; 81001; 83690; 84703; 85025; 96374; 96375; 96376; 99285; J2060; J2405

== ENCOUNTER 2017-09-06 15:39 | Inpatient (IN) | payer MEDICAID ==
[2017-09-06 15:39] VITALS: BMI 35.4
--- NOTE | 2017-09-06 16:33 | C.PDOC ---
History Of Present Illness 42 year old female presents to the ED requesting psychiatric evaluation for depression. She admits to suicidal ideation with plan to jump in front of train. She denies homicidal ideation or hallucinations. Patient states that she has a history of PTSD. Of note, patient was discharged from the ED earlier today and states that she was given ativan before discharge. No physical complaints at this time. Chief Complaint (Nursing): Psychiatric Evaluation History Per: Patient History/Exam Limitations: no limitations Current Symptoms Are (Timing): Still Present Past Medical History Reviewed: Historical Data, Nursing Documentation, Vital Signs Vital Signs: Last Vital Signs Temp 97.9 F 09/06/17 20:29 Pulse 77 09/06/17 20:29 Resp 18 09/06/17 20:29 BP 94/65 L 09/06/17 20:29 Pulse Ox 97 09/06/17 20:29 - Medical History PMH: Anxiety, Bipolar Disorder, Bronchitis, Depression (history of suicide attempts), Gastritis, Post Traumatic Stress Disorder Denies: Diabetes, Hepatitis, HIV, HTN, Chronic Kidney Disease, Seizures, Sexually Transmitted Disease Surgical History: Tonsillectomy - [facility] Procedures INJECT/INFUSE NEC (06/16/07) MEDICATION MANAGEMENT (08/09/17) MEDS MGMT FOR SUBSTANCE ABUSE TREATMENT, METHADONE MAINT (07/07/17) PSYCHIAT DRUG THERAP NEC (12/28/14) Family History: States: Unknown Family Hx - Social History Hx Tobacco Use: Yes Hx Alcohol Use: No Hx Substance Use: Yes - Immunization History Hx Tetanus Toxoid Vaccination: No Hx Influenza Vaccination: No Hx Pneumococcal Vaccination: No Review Of Systems Psych: Positive for: Depression, Suicidal ideation. Negative for: Other ( Homicidal ideation, Hallucinations ) Physical Exam - Physical Exam Appears: No Acute Distress, Unkempt, Other (Appears somnolent ) Skin: Warm, Dry Head: Atraumatic, Normacephalic Eye(s): bilateral: Normal Inspection, PERRL, EOMI Oral Mucosa: Moist Cardiovascular: Rhythm Regular, No Murmur Respiratory: Normal Breath Sounds (Clear to ascultation bilaterally ) Extremity: No Pedal Edema, No Deformity Neurological/Psych: Oriented x3, Normal Speech, Other (Answering questions appropriately ) ED Course And Treatment - Laboratory Results Result Diagrams: 09/06/17 17:09 09/06/17 17:09 O2 Sat by Pulse Oximetry: 100 Disposition - Disposition Disposition: HOSPITALIZED Disposition Time: 19:20 Condition: STABLE - Clinical Impression Clinical Impression: Depression - Scribe Statement The provider has reviewed the documentation as recorded by the Yrnibivan Swartz Provider Attestation: All medical record entries made by the Scribe were at my direction and personally dictated by me. I have reviewed the chart and agree that the record accurately reflects my personal performance of the history, physical exam, medical decision making, and the department course for this patient. I have also personally directed, reviewed, and agree with the discharge instructions and disposition.
[2017-09-06 17:18] LABS: BASO % 0.3 % (0.0-2.0); EOS % 0.1 % (0.0-4.0); HEMATOCRIT 38.2 % (34.0-47.0); LYMPH # 0.6 K/uL (1.0-4.3); LYMPH % 8.5 % (20.0-40.0); MEAN CELL VOLUME 83.6 fL (81.0-99.0); MEAN CORPUSCULAR HEMOGLOBIN 27.9 pg (27.0-31.0); MEAN CORPUSCULAR HGB CONC 33.4 g/dL (33.0-37.0); MEAN PLATELET VOLUME 8.2 fL (7.2-11.7); MONO # 0.2 K/uL (0.0-0.8); MONO % 2.2 % (0.0-10.0); PLATELET COUNT 201 K/uL (130-400); RED CELL DISTRIBUTION WIDTH 14.9 % (11.5-14.5)
[2017-09-06 17:20] LABS: CHLORIDE 100 mmol/L (98-107)
[2017-09-06 17:21] LABS: POTASSIUM 3.7 mmol/L (3.6-5.2); SODIUM 136 mmol/L (132-148)
[2017-09-06 17:23] LABS: ALB/GLOB RATIO 1.1 (1.0-2.1); ALKALINE PHOSPHATASE 69 U/L (38-126); ALT/SGPT 55 U/L (9-52); AST/SGOT 70 U/L (14-36); BILIRUBIN,TOTAL 0.5 mg/dL (0.2-1.3); BLOOD UREA NITROGEN 10 mg/dL (7-17); CALCIUM 9.3 mg/dl (8.6-10.4); CARBON DIOXIDE 27 mmol/L (22-30); GFR AFRICAN-AMERICAN > 60; GLUCOSE,RANDOM 110 mg/dL (65-105); TOTAL PROTEIN 8.4 g/dL (6.3-8.3)
[2017-09-06 17:24] LABS: ALCOHOL SERUM < 10 mg/dl (0-10)
[2017-09-06 18:12] LABS: NEUTROPHIL 86 % (50-75); TOTAL CELLS COUNTED 100
[2017-09-06 19:04] LABS: RBC URINE 4 /hpf (0-3); URINE BACTERIA FEW (<OCC); URINE BILIRUBIN NEGATIVE (NEGATIVE); URINE BLOOD NEGATIVE (NEGATIVE); URINE COLOR Yellow (YELLOW); URINE GLUCOSE (UA) NORMAL (Normal); URINE KETONE 2+ mg/dL (NEGATIVE); URINE LEUKOCYTE ESTERASE 2+ Leu/uL (Negative); URINE PROTEIN 1+ mg/dL (NEGATIVE); URINE UROBILINOGEN NORMAL mg/dL (0.2-1.0); WBC URINE 22 /hpf (0-5)
--- NOTE | 2017-09-06 20:34 | PCM.BM ---
<Yanna Flores - Last Filed: 09/06/17 20:33> Treatment Plan Problems - Problems identified on initial assessmt Depression Date Initiated: 09/06/17 Time Initiated: 20:34 Assessment reference: NA Status: Active Treatment assets and liabiliti Patient Assests: cooperative, self-reliant, ADL independent, negotiates basic needs Patient Liabilities: medical problems - Milieu Protocol Maintain good personal hygiene: daily Encourage regular showers, daily Remind patient to perform daily oral care Conduct patient checks and document Observation sheet: Q15 minutes Maintain personal safety: every shift Educate patient to report safety concerns to staff, every shift Monitor environment for contraband/sharps Medication safety: Monitor for expected outcome, potential side effects: every shift, Assess barriers to learning: every shift, Assess readiness for medication education: every shift <Jailene Echavarria - Last Filed: 09/07/17 11:17> Family Contact Family involvement: Famliy/SO not involved - Outside Agency Agency 1 Care involvment: Information-sharing [facility] Agency contact number: - Goals for Treatment Patient goals for treatment: "I want to go back to my program." Discharge/Continuing Care - Education Needs Education Needs: Patient Medication, Patient Coping Skills - Discharge Discharge Criteria: Tolerates medication w/o severe side effects, Free of Suicidal thoughts, Reduction of target symptoms Discharge to:: Home - Treatment Team Participation Discussed with Family/SO: No Was Patient/Family/SO present at Treatment Team Meeting: Yes <Trish Keith - Last Filed: 09/07/17 11:22> - Diagnosis (1) Depression Status: Chronic Interventions: 09/07/17 11:20 * Assess/adjust medications daily and /or as needed * See patient on an individual basis 7x/week to assess level of depressive and manic behaviors and stability * Discuss risks, benefits, side effects and alternatives of medications * (2) Cocaine use disorder, severe, dependence Status: Acute Interventions: 09/07/17 11:21 * Assess 7x/week regarding severity of withdrawal * Educate regarding risks, benefits, side effects and alternatives of medications * Use Motivational Interviewing for abstinence * Use CBT for relapse prevention * Medication management for withdrawal symptoms * Encourage medication assisted treatment *
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
[2017-09-07] MEDS: Pantoprazole 20 mg EC Tab PO SCH (11:15)
[2017-09-07] MEDS ORDERED: Methadone 40 mg Tab PO STA (19:49)
[2017-09-08 07:19] VITALS: O2SAT 98
[2017-09-08] MEDS: Pantoprazole 20 mg EC Tab PO SCH (09:53)
--- NOTE | 2017-09-08 10:43 | PCM.PYCHPN ---
Psychiatric Progress Note - Psychiatric Progress Note Patient seen today, length of contact: 16 minutes Patient Chief Complaint: "Shitty" Problems Identified/Issues Discussed: Pt is seen, chart reviewed, case discussed with staff. Pt is compliant with medications and reports no side effects. At the time of interview the pt is agitated because she hasn't been able to use the phone to make a call to a family member. She also reports that her anxiety has worsened since her admission, however, her withdrawal symptoms are improving. Symptoms are improving but pt needs more time to stabilize. Support and psychoeducation given, CBT and [place] used briefly. After care discussed. She is prepared to return to her outpatient program in [place] which she was attending prior to admission. Medication Change: No Medical Record Reviewed: Yes Mental Status Examination - Cognitive Function Orientation: Person, Place, Situation, Time Memory: Intact Attention: WNL Concentration: WNL Association: WNL Fund of Knowledge: WNL - Mood Mood: Anxious - Affect Affect: Broad - Speech Speech: Appropriate - Formal Thought Process Formal Thought Process: No Impairment - Suicidal Ideation Suicidal Ideation: No - Homicidal Ideation Homicidal Ideation: No Goal/Treatment Plan - Goal/Treatment Plan Need for Continued Stay: Severe depression anxiety, Discharge may exacerbated symptoms, Severe functional impairment Progress Toward Problem(s) and Goals/Treatment Plan: Continue medications as prescribed Supportive therapy and psychoeducation Attend groups and activities Attend self-help groups Refer to after care
[2017-09-09] MEDS: Pantoprazole 20 mg EC Tab PO SCH (10:32)
--- NOTE | 2017-09-09 11:24 | PCM.PYCHPN ---
Psychiatric Progress Note - Psychiatric Progress Note Patient seen today, length of contact: 15 minutes Patient Chief Complaint: "Still shitty" Problems Identified/Issues Discussed: Pt is seen, chart reviewed, case discussed with staff. Pt is compliant with medications and reports no side effects. She cotninues to report of agitation and anxiety. However, her sleep is improving. Symptoms are improving but pt needs more time to stabilize. Support and psychoeducation given, CBT and [place] used briefly. After care discussed. Medication Change: Yes (Methadone) Medical Record Reviewed: Yes Mental Status Examination - Cognitive Function Orientation: Person, Place, Situation, Time Memory: Intact Attention: WNL Concentration: WNL Association: WNL Fund of Knowledge: WNL - Mood Mood: Anxious - Affect Affect: Broad - Speech Speech: Appropriate - Formal Thought Process Formal Thought Process: No Impairment - Suicidal Ideation Suicidal Ideation: No - Homicidal Ideation Homicidal Ideation: No Goal/Treatment Plan - Goal/Treatment Plan Need for Continued Stay: Severe depression anxiety, Discharge may exacerbated symptoms, Severe functional impairment Progress Toward Problem(s) and Goals/Treatment Plan: Methadone 10 mg PO daily AMBREEN Continue medications as prescribed Supportive therapy and psychoeducation Attend groups and activities Attend self-help groups Refer to after care
[2017-09-10] MEDS: Pantoprazole 20 mg EC Tab PO SCH (10:11)
--- NOTE | 2017-09-10 11:49 | PCM.PYCHPN ---
Psychiatric Progress Note - Psychiatric Progress Note Patient seen today, length of contact: 15 minutes Patient Chief Complaint: "I'm alright" Problems Identified/Issues Discussed: Pt is seen, chart reviewed, case discussed with staff. Pt is compliant with medications and reports no side effects. She continues to report of anxiety. She is encouraged to learn coping strategies to calm her anxiety rather than relying on medication alone. She acknowledges the importance of this. Support and psychoeducation given. After care discussed. She is prepare for discharge tomorrow 09/11 and will go back to [facility]. Medication Change: No Medical Record Reviewed: Yes Mental Status Examination - Cognitive Function Orientation: Person, Place, Situation, Time Memory: Intact Attention: WNL Concentration: WNL Association: WNL Fund of Knowledge: WNL - Mood Mood: Anxious - Affect Affect: Constricted - Speech Speech: Appropriate - Formal Thought Process Formal Thought Process: No Impairment - Suicidal Ideation Suicidal Ideation: No - Homicidal Ideation Homicidal Ideation: No Goal/Treatment Plan - Goal/Treatment Plan Need for Continued Stay: Severe depression anxiety, Discharge may exacerbated symptoms, Severe functional impairment Progress Toward Problem(s) and Goals/Treatment Plan: Continue medications as prescribed Supportive therapy and psychoeducation Attend groups and activities Attend self-help groups Refer to after care Estimated Date of D/C: 09/11/17 (Pt needs more time to stabilize)
[2017-09-10 17:02] VITALS: PULSE 60; RESP 18
[2017-09-11 07:48] VITALS: BP 127/82; TEMP 98
[2017-09-11] MEDS: Pantoprazole 20 mg EC Tab PO SCH (09:56)
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
== END 2017-09-11 13:00 | disposition home or self-care (01) | DRG 430 ==
LOC: C.ER 15:39 → C.5E 19:27
PROC: HZ52ZZZ Individual Psychotherapy for Substance Abuse Treatment, Cognitive-Behavioral (ICD-10-PCS; principal; 2017-09-07)
PROC: HZ59ZZZ Individual Psychotherapy for Substance Abuse Treatment, Supportive (ICD-10-PCS; 2017-09-07)
PROC: HZ56ZZZ Individual Psychotherapy for Substance Abuse Treatment, Psychoeducation (ICD-10-PCS; 2017-09-07)
PROC: HZ42ZZZ Group Counseling for Substance Abuse Treatment, Cognitive-Behavioral (ICD-10-PCS; 2017-09-07)
PROC: HZ46ZZZ Group Counseling for Substance Abuse Treatment, Psychoeducation (ICD-10-PCS; 2017-09-07)
DX: F31.4 Bipolar disorder, current episode depressed, severe, without psychotic features (principal); R45.851 Suicidal ideations; F11.20 Opioid dependence, uncomplicated; F14.23 Cocaine dependence with withdrawal; F43.10 Post-traumatic stress disorder, unspecified; F17.210 Nicotine dependence, cigarettes, uncomplicated; F41.0 Panic disorder [episodic paroxysmal anxiety]

== ENCOUNTER 2017-09-30 23:58 | Inpatient (IN) | payer MEDICAID ==
[2017-09-30 23:58] VITALS: BMI 35.4
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
[2017-10-01 01:37] LABS: BASO # 0.1 K/uL (0.0-0.2); BASO % 0.7 % (0.0-2.0); EOS # 0.2 K/uL (0.0-0.7); HEMATOCRIT 35.6 % (34.0-47.0); LYMPH # 2.9 K/uL (1.0-4.3); LYMPH % 38.2 % (20.0-40.0); MEAN CELL VOLUME 82.5 fL (81.0-99.0); MEAN CORPUSCULAR HEMOGLOBIN 27.2 pg (27.0-31.0); MEAN PLATELET VOLUME 7.6 fL (7.2-11.7); MONO # 0.6 K/uL (0.0-0.8); MONO % 7.6 % (0.0-10.0); RED CELL DISTRIBUTION WIDTH 14.5 % (11.5-14.5); WHITE BLOOD COUNT 7.6 K/uL (4.8-10.8)
[2017-10-01 01:43] LABS: CHLORIDE 97 mmol/L (98-107)
[2017-10-01 01:44] LABS: POTASSIUM 3.7 mmol/L (3.6-5.2); SODIUM 133 mmol/L (132-148)
[2017-10-01 01:46] LABS: GFR AFRICAN-AMERICAN > 60
[2017-10-01 01:47] LABS: ALB/GLOB RATIO 1.6 (1.0-2.1); ALKALINE PHOSPHATASE 56 U/L (38-126); ALT/SGPT 32 U/L (9-52); AST/SGOT 28 U/L (14-36); BILIRUBIN,TOTAL 0.6 mg/dL (0.2-1.3); BLOOD UREA NITROGEN 12 mg/dL (7-17); CALCIUM 8.4 mg/dl (8.6-10.4); CARBON DIOXIDE 28 mmol/L (22-30); GLUCOSE,RANDOM 80 mg/dL (65-105); TOTAL PROTEIN 6.5 g/dL (6.3-8.3)
[2017-10-01 01:48] LABS: ALCOHOL SERUM < 10 mg/dl (0-10)
[2017-10-01 02:13] LABS: RBC URINE < 1 /hpf (0-3); URINE BILIRUBIN NEGATIVE (NEGATIVE); URINE BLOOD NEGATIVE (NEGATIVE); URINE COLOR Yellow (YELLOW); URINE GLUCOSE (UA) NORMAL (Normal); URINE KETONE NEGATIVE (NEGATIVE); URINE LEUKOCYTE ESTERASE NEG Leu/uL (Negative); URINE PROTEIN NEGATIVE (NEGATIVE); URINE UROBILINOGEN NORMAL mg/dL (0.2-1.0); WBC URINE < 1 /hpf (0-5)
--- NOTE | 2017-10-01 06:41 | PCM.BM ---
<BrittaniLou - Last Filed: 10/01/17 06:40> Treatment Plan Problems - Problems identified on initial assessmt Depression Date Initiated: 10/01/17 Time Initiated: 06:18 Assessment reference: NA Status: Active Treatment assets and liabiliti Patient Assests: cooperative, self-reliant, ADL independent, negotiates basic needs Patient Liabilities: poor support system, relationship conflicts - Milieu Protocol Maintain good personal hygiene: daily Encourage regular showers, daily Remind patient to perform daily oral care, daily Assist patient to perform ADL's Conduct patient checks and document Observation sheet: Q15 minutes Maintain personal safety: every shift Educate patient to report safety concerns to staff, every shift Monitor environment for contraband/sharps Medication safety: Monitor for expected outcome, potential side effects: every shift, Assess barriers to learning: every shift, Assess readiness for medication education: every shift <Jailene Echavarria - Last Filed: 10/02/17 10:59> Family Contact Family involvement: Family/SO is involved Family contact: Patient declines to allow family contact at present - Goals for Treatment Patient goals for treatment: "I want to go to an outpatient program." Discharge/Continuing Care - Education Needs Education Needs: Patient Medication, Patient Coping Skills, Patient Placement options, Patient Community resources - Discharge Discharge Criteria: Tolerates medication w/o severe side effects, No longer exhibiting s/s of withdrawal, Reduction of target symptoms Discharge to:: Home - Treatment Team Participation Discussed with Family/SO: No Was Patient/Family/SO present at Treatment Team Meeting: Yes <Trish Keith - Last Filed: 10/02/17 11:08> - Diagnosis (1) Severe depressed bipolar II disorder without psychotic features Status: Acute Interventions: 10/02/17 11:07 * Assess/adjust medications daily and /or as needed * See patient on an individual basis 7x/week to assess level of depressive behaviors and stability * Discuss risks, benefits, side effects and alternatives of medications *
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
[2017-10-01] MEDS: Methadone 40 mg Tab PO SCH (10:50)
[2017-10-02] MEDS: Methadone 40 mg Tab PO SCH (09:42)
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
[2017-10-03] MEDS: Methadone 40 mg Tab PO SCH (09:43)
[2017-10-04] MEDS: Methadone 40 mg Tab PO SCH (09:05)
[2017-10-04 09:09] VITALS: O2SAT 99
[2017-10-04] MEDS ORDERED: Influenza Vaccine 60 mcg/0.5 mL SYR (4YR UP) IM ONE (10:00)
[2017-10-05 06:42] VITALS: RESP 20
[2017-10-05] MEDS: Methadone 40 mg Tab PO SCH (10:07)
--- NOTE | 2017-10-05 11:17 | PCM.PYCHPN ---
Psychiatric Progress Note - Psychiatric Progress Note Patient seen today, length of contact: 15 Patient Chief Complaint: "I feel still feel like crap" Problems Identified/Issues Discussed: The pt is seen, chart reviewed, case discussed with staff. The pt is compliant with medications and reports no side-effects. Symptoms are improving but needs more time to stabilize. After care discussed, support and psychoeducation given. Patient reports a "general crappy feeling". She states her body is aching and she feels down. Pt. states she slept fine, denies any SI or AVH. Patient states prozac works well for her and questioned if it could be increased. Medication Change: No Medical Record Reviewed: Yes Mental Status Examination - Cognitive Function Orientation: Person, Place, Situation, Time Memory: Intact Attention: WNL Concentration: WNL Association: WNL Fund of Knowledge: WNL - Mood Mood: Depressed, Anxious - Affect Affect: Constricted, Depressed - Formal Thought Process Formal Thought Process: No Impairment - Suicidal Ideation Suicidal Ideation: No - Homicidal Ideation Homicidal Ideation: No Goal/Treatment Plan - Goal/Treatment Plan Need for Continued Stay: Severe depression anxiety, Discharge may exacerbated symptoms, Severe functional impairment Progress Toward Problem(s) and Goals/Treatment Plan: Bipolar 2 disorder depressed severe Start Prozac 20 mg DAILY Gabapentin 300 mg TID Methadone 130 DAILY Trazodone 100 HS Continue medications Support and psychoeducation daily Attend groups and activities daily After care planning by SW, discharge likely tomorrow Continue with [facility] methadone program.
[2017-10-06 07:36] VITALS: TEMP 97.6
[2017-10-06] MEDS: Methadone 40 mg Tab PO SCH (10:28)
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
[2017-10-06 16:38] VITALS: BP 113/74; PULSE 74
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
[2017-10-07] MEDS: Methadone 40 mg Tab PO SCH (10:36)
== END 2017-10-07 11:15 | disposition home or self-care (01) | DRG 430 ==
LOC: C.ER 23:58 → C.5E 10-01 04:56
PROVIDERS: ADMIT Psychiatry & Neurology Psychiatry; ATTEND Psychiatry & Neurology Psychiatry
PROC: GZ3ZZZZ Medication Management (ICD-10-PCS; principal; 2017-10-01)
PROC: GZHZZZZ Group Psychotherapy (ICD-10-PCS; 2017-10-01)
PROC: GZ56ZZZ Individual Psychotherapy, Supportive (ICD-10-PCS; 2017-10-01)
DX: F31.81 Bipolar II disorder (principal); F32.2 Major depressive disorder, single episode, severe without psychotic features; R45.851 Suicidal ideations; F43.10 Post-traumatic stress disorder, unspecified; F19.10 Other psychoactive substance abuse, uncomplicated; F17.210 Nicotine dependence, cigarettes, uncomplicated; Z91.5 Personal history of self-harm; Z91.410 Personal history of adult physical and sexual abuse